=== PATIENT | female | born 1935 | race African-American/Black ===

== ENCOUNTER 2017-04-22 02:02 | Inpatient (IN) | payer OTHER ==
[~2017-04-22] VITALS: Ht 162.6 cm; Wt 68.0 kg
[2017-04-22] MEDS ORDERED: HYDR-552 PO (02:34)
[2017-04-22] MEDS ORDERED: QUET25TA PO (02:34)
[2017-04-22] MEDS ORDERED: [UNRECOGNIZED DRUG - CODE] IV (02:34)
[2017-04-22] MEDS ORDERED: HALO100A2 IM (02:34)
[2017-04-22] MEDS ORDERED: MIRT30TA7 PO (02:34)
[2017-04-22] MEDS ORDERED: ACET-2154 PO (02:34)
[2017-04-22] MEDS ORDERED: INSU100C (02:34)
[2017-04-22] MEDS ORDERED: DONE5TAB34 PO (02:34)
--- NOTE | 2017-04-22 02:34 | NUR ---
MEDICALLY CLEARED BY DR CALDWELL
[2017-04-22] MEDS ORDERED: BENA1TAB18 PO (02:37)
--- NOTE | 2017-04-22 02:44 | NUR ---
TRANSFERED TO [facility] VIA [facility]
--- NOTE | 2017-04-22 04:07 | NUR ---
received to care at 0245 from [facility] on a 72 hour hold for gravely disabled. according to the chart, she has a history of dementia and schizophrenia. she was living at home with her family but they were no longer able to care for her, due to non compliance with medications, non stop talking, and refusing care from both family, and caregivers. upon arrival on the unit, she was cooperative, but was very sleepy, and was unable to provide much information. she was assisted to bed at around 0330, and has been asleep, ever since. no distress noted. will continue to monitor closely.
[2017-04-22] MEDS ORDERED: MAGNESIUM HYDROXIDE 30 ML LIQUID UDC PO PRN (05:15)
[2017-04-22] MEDS ORDERED: ACETAMINOPHEN 325 MG TABLET PO PRN ×2 (05:15→18:30)
[2017-04-22] MEDS ORDERED: TEMAZEPAM 7.5 MG CAPSULE PO PRN (05:15)
[2017-04-22] MEDS ORDERED: MAG HYDROX/AL HYDROX/SIMETH 30 ML LIQUID UDC PO PRN (05:15)
--- NOTE | 2017-04-22 06:32 | NUR ---
AM accucheck was 84. slept 2.25 hours total. continues to sleep. no distress noted.
[2017-04-22 07:30] VITALS: BP 129/59
--- NOTE | 2017-04-22 13:47 | NUR ---
Initial DC Plan: Patient currently resides at home with her son Manuel [[phone]]. SW spoke with patient's daughter Shadia [[phone]] who stated she can take patient home when ready. JULIAN will follow up with MD, patient, and patient's family to discuss most appropriate discharge plans. SW will form a safe and proper discharge.
[2017-04-22] MEDS: LORAZEPAM 0.5 MG TABLET PO PRN (15:13)
[2017-04-22 16:00] VITALS: BP 126/64
--- NOTE | 2017-04-22 16:44 | NUR ---
DR. ALICIA BLOOM CONTACTED IN REGARDS OR MEDICATION RECONCILATION. HE REPLIED THAT HE WILL DONE IT SOON.
[2017-04-22] MEDS ORDERED: HYDROCODONE/APAP 5-325MG TABLET PO PRN (18:30)
[2017-04-22] MEDS: INSULIN LISPRO 1000 UNITS/10 ML VIAL(HUMALOG) SQ SCH (18:30)
[2017-04-22] MEDS: DIVALPROEX 125 MG TABLET.DR PO SCH (19:09)
[2017-04-22 19:43] VITALS: BP 151/72
--- NOTE | 2017-04-22 20:00 | NUR ---
PT AT THE NURSING STATION REQUESTING THAT HER DAUGHTER ETTA BE CALLED ON THE PHONE, FOR HER TO SPEAK WITH HER. ETTA'S NUMBER WAS DIALED AND PHONE GIVEN TO THE PT. SUDDENLY, PT STARTED YELLING, SCREAMING, SHATTERING THE CORDLESS PHONE ON THE FLOOR SAYING "I DON'T KNOW WHY MY FAMILY WANTS TO KILL ME, I DON'T EVEN HAVE A LIFE INSURANCE", VERY LOUD AND DISRUPTIVE TO THE UNIT,. VERY PARANOID AND DELUSIONAL. DR NAYAK WAS CALLED AND NOTIFIED, NEW ORDERS OBTAINED AND CARRIED OUT, WILL CONTINUE TO MONITOR. CLOSELY.
[2017-04-22] MEDS ORDERED: OLANZAPINE 10 MG VIAL IM ONE (20:15)
--- NOTE | 2017-04-22 20:27 | NUR ---
zyprexa 5 mg IM given to right deltoid. pt remains agitated and paranoid, cursing at her room mate. believes that people are conspiring against her, both nursing staff, and her family. states "my family is trying to kill me. i don't know why. i don't have any life insurance" firm limits set. will continue to monitor closely.
[2017-04-22] MEDS: MIRTAZAPINE 15 MG TABLET PO SCH (21:09)
[2017-04-22] MEDS: QUETIAPINE FUMARATE 25 MG TABLET PO SCH (21:09)
--- NOTE | 2017-04-22 21:09 | NUR ---
appears slightly calmer. bedtime medications were given. remains verbally hostile, and easily agitated. currently eating a snack. will continue to monitor closely.
[2017-04-22] MEDS: BLOOD SUGAR DIAGNOSTIC 1 EACH STRIP VI SCH (21:14)
--- NOTE | 2017-04-22 23:30 | NUR ---
appears calmer, but remains agitated. continues to be verbally hostile. PRN medication offered for anxiety or insomnia, but she refused. currently yelling and cursing, in her room. difficult to redirect. will continue to monitor closely.
--- NOTE | 2017-04-23 00:45 | NUR ---
remains awake, angry, and restless. PRN medication offered again, but she refused, and began cursing. firm limits set. she remains difficult to redirect. will continue to monitor closely.
--- NOTE | 2017-04-23 06:00 | NUR ---
slept several times, intermittently, during the night, 3.5 hours total. in between sleep periods, she was loud, angry, and noisy, yelling obscenities, and difficult to redirect. as of 0600, she remains asleep. no distress noted. will continue to monitor closely.
[2017-04-23] MEDS: BLOOD SUGAR DIAGNOSTIC 1 EACH STRIP VI SCH ×4 (06:33→21:00)
[2017-04-23 07:30] VITALS: BP 143/55
[2017-04-23] MEDS: INSULIN LISPRO 1000 UNITS/10 ML VIAL(HUMALOG) SQ SCH ×2 (07:30→11:30)
--- NOTE | 2017-04-23 08:12 | NUR ---
humalog insulin ac meal not adm. , patient only ate 25% of her meal share.
--- NOTE | 2017-04-23 08:12 | NUR ---
UR Note: JULIAN faxed patient's daily clinicals to counseling case manager Dior reynolds [facility] [[phone]; fax: [phone]]. Awaiting authorization number.
[2017-04-23] MEDS: QUETIAPINE FUMARATE 25 MG TABLET PO SCH ×2 (08:14→21:23)
[2017-04-23] MEDS: BENAZEPRIL HCL 20 MG TABLET PO SCH (08:14)
[2017-04-23] MEDS: DIVALPROEX 125 MG TABLET.DR PO SCH ×2 (08:14→16:52)
[2017-04-23] MEDS: HYDROCHLOROTHIAZIDE 12.5 MG CAPSULE PO SCH (08:15)
[2017-04-23] MEDS: LORAZEPAM 0.5 MG TABLET PO PRN (11:00)
[2017-04-23 11:08] LABS: BASOPHILS % (AUTO) 1.2 % (0.0-2.0); EOSINOPHILS # (AUTO) 0.3 K/uL (0.0-0.7); EOSINOPHILS % (AUTO) 8.6 % (0.0-7.0); HEMATOCRIT 41.6 % (31.2-41.9); HEMOGLOBIN 13.8 g/dL (10.9-14.3); LYMPHOCYTES # (AUTO) 1.1 K/uL (20.0-40.0); MEAN CORPUSCULAR HEMOGLOBIN 31.1 uug (24.7-32.8); MEAN CORPUSCULAR HGB CONC 33 g/dL (32.3-35.6); MEAN CORPUSCULAR VOLUME 93.6 fL (75.5-95.3); MONOCYTES # (AUTO) 0.3 K/uL (2.0-10.0); MONOCYTES % (AUTO) 11.2 % (0.0-11.0); NEUTROPHILS # (AUTO) 1.4 K/uL (1.8-8.9); PLATELET COUNT (AUTO) 187 K/uL (179-408); RED BLOOD CELL COUNT(AUTO) 4.44 MIL/uL (3.63-4.92); WHITE BLOOD COUNT (AUTO) 3.1 K/uL (3.8-11.8)
[2017-04-23 11:26] LABS: ALANINE AMINOTRANSFERASE 22 U/L (14-59); ALKALINE PHOSPHATASE 86 U/L (50-136); ASPARTATE AMINOTRANSFERASE 24 U/L (15-37); BILIRUBIN,TOTAL 0.2 mg/dL (0.2-1.0); CARBON DIOXIDE 27 mmol/L (21-32); CHLORIDE 105 mmol/L (98-107); GLUCOSE 100 mg/dL (74-106); PHOSPHOROUS 4.8 mg/dL (2.5-4.9); POTASSIUM 4.5 mmol/L (3.5-5.1); TOTAL PROTEIN, SERUM 8.7 g/dL (6.4-8.2); UREA NITROGEN, BLOOD 37 mg/dL (7-18)
[2017-04-23] MEDS ORDERED: DEXTROSE 50% 50 ML DISP.SYRIN IV PRN (15:15)
[2017-04-23] MEDS ORDERED: INSULIN REGULAR, HUMAN 300 UNIT/3 ML VIAL SQ PRN (15:15)
[2017-04-23 16:00] VITALS: BP 115/60
[2017-04-23 20:00] VITALS: BP 132/61
[2017-04-23] MEDS: MIRTAZAPINE 15 MG TABLET PO SCH (21:23)
[2017-04-24 07:30] VITALS: BP 129/73
--- NOTE | 2017-04-24 08:23 | NUR ---
UR Note: JULIAN faxed patient's daily clinicals to case packer and sealer Dior reynolds [facility] [[phone]; fax: [phone]]. Awaiting authorization number.
[2017-04-24] MEDS: BLOOD SUGAR DIAGNOSTIC 1 EACH STRIP VI SCH ×4 (08:24→20:31)
[2017-04-24] MEDS: HYDROCHLOROTHIAZIDE 12.5 MG CAPSULE PO SCH (08:26)
[2017-04-24] MEDS: BENAZEPRIL HCL 20 MG TABLET PO SCH (08:26)
[2017-04-24] MEDS: QUETIAPINE FUMARATE 25 MG TABLET PO SCH ×2 (08:26→21:00)
[2017-04-24] MEDS: DIVALPROEX 125 MG TABLET.DR PO SCH (08:28)
--- NOTE | 2017-04-24 12:14 | NUR ---
1130 patient accucheck blood sugar was 63 mg/dl- milk and lunch meal given.
[2017-04-24 15:00] VITALS: BP 113/64
[2017-04-24] MEDS ORDERED: DIVALPROEX 125 MG TABLET.DR PO SCH (17:00)
[2017-04-24] MEDS: DIVALPROEX 250 MG TABLET.DR PO SCH (17:39)
[2017-04-24] MEDS: LORAZEPAM 0.5 MG TABLET PO PRN ×2 (18:51→20:01)
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
[2017-04-24 20:19] VITALS: BP 123/74
[2017-04-24] MEDS: MIRTAZAPINE 15 MG TABLET PO SCH (21:00)
--- NOTE | 2017-04-24 22:00 | NUR ---
received to care, yelling, angry, verbally hostile, and difficult to redirect. PRN ativan was given at 2000, and, by 2099, she remained angry, and remained hostile, but easier to redirect. as of 2199, she is in activity room with peer. appears calmer, but still labile. firm limits set. currently eating a snack. appears to be in no acute distress. will continue to monitor closely.
--- NOTE | 2017-04-24 23:00 | NUR ---
currently lying in bed, talking to self, loudly. PRN offered for insomnia, but she refused. will continue to monitor closely.
--- NOTE | 2017-04-24 23:25 | NUR ---
PRN restoril given for insomnia
--- NOTE | 2017-04-25 00:20 | NUR ---
appears to be asleep. no distress noted.
--- NOTE | 2017-04-25 03:00 | NUR ---
is now awake.
[2017-04-25] MEDS: BLOOD SUGAR DIAGNOSTIC 1 EACH STRIP VI SCH ×5 (06:17→20:05)
--- NOTE | 2017-04-25 06:17 | NUR ---
remains awake. slept 4.0 hours, total. AM accucheck is 60. pt denies any sx. 4 oz. orange juice with sugar given.
--- NOTE | 2017-04-25 06:45 | NUR ---
accucheck is now 64.
[2017-04-25 07:30] VITALS: BP 130/74
[2017-04-25] MEDS: BENAZEPRIL HCL 20 MG TABLET PO SCH (09:02)
[2017-04-25] MEDS: QUETIAPINE FUMARATE 25 MG TABLET PO SCH ×2 (09:02→20:05)
[2017-04-25] MEDS: DIVALPROEX 250 MG TABLET.DR PO SCH ×2 (09:02→16:58)
[2017-04-25] MEDS: HYDROCHLOROTHIAZIDE 12.5 MG CAPSULE PO SCH (09:02)
--- NOTE | 2017-04-25 12:00 | NUR ---
GPS: Nursing Notes: FBS: Patient's FBS is 79, WNL, no action needed.
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
[2017-04-25] MEDS ORDERED: diphenhydrAMINE 50 MG/1 ML VIAL IM STA (12:46)
[2017-04-25] MEDS ORDERED: OLANZAPINE 10 MG VIAL IM STA (12:46)
[2017-04-25] MEDS ORDERED: LORAZEPAM 2 MG/1 ML VIAL IM STA (12:46)
[2017-04-25 20:00] VITALS: BP 136/66
[2017-04-25] MEDS: MIRTAZAPINE 15 MG TABLET PO SCH (20:05)
--- NOTE | 2017-04-25 20:15 | NUR ---
Pt REFUSED HS ACU-CHECK. Pt GIVEN DIABETIC EDUCATION.
[2017-04-26] MEDS: BLOOD SUGAR DIAGNOSTIC 1 EACH STRIP VI SCH (06:44)
[2017-04-26 07:30] VITALS: BP 143/79
[2017-04-26] MEDS: DIVALPROEX 250 MG TABLET.DR PO SCH ×2 (08:34→16:39)
[2017-04-26] MEDS: BENAZEPRIL HCL 20 MG TABLET PO SCH (08:34)
[2017-04-26] MEDS: QUETIAPINE FUMARATE 25 MG TABLET PO SCH ×2 (08:34→20:20)
[2017-04-26] MEDS: HYDROCHLOROTHIAZIDE 12.5 MG CAPSULE PO SCH (08:34)
[2017-04-26 15:08] VITALS: BP 96/50
--- NOTE | 2017-04-26 18:00 | NUR ---
GPS: Nursing Notes: Thought Disorder: Patient is awake and responding to her name, poor anger management, poor impulse control, disruptive by constantly shouting profanities toward staff, shouting racial statement, using the "N" toward peer and staff, impaired judgment, believes that we are against her, believes that the staff is against black people, loud and angry affect, episodes of slamming her bathroom's door, resistant with nursing care, believes that we are not feeding her, believes that we are hiding her food because she is black, guarded, paranoid behavior, unable to formulate a plan for self care, A/Ox2, continue with treatment plan.
[2017-04-26 20:00] VITALS: BP 124/60
[2017-04-26] MEDS: MIRTAZAPINE 15 MG TABLET PO SCH (20:20)
[2017-04-27 07:52] VITALS: BP 125/66
[2017-04-27] MEDS: HYDROCHLOROTHIAZIDE 12.5 MG CAPSULE PO SCH (10:11)
[2017-04-27] MEDS: DIVALPROEX 250 MG TABLET.DR PO SCH ×2 (10:11→18:00)
[2017-04-27] MEDS: QUETIAPINE FUMARATE 25 MG TABLET PO SCH ×2 (10:12→20:03)
[2017-04-27] MEDS: BENAZEPRIL HCL 20 MG TABLET PO SCH (10:12)
--- NOTE | 2017-04-27 12:22 | NUR ---
UR Note: JULIAN faxed patient's daily clinicals to outpatient case manager Dior reynolds [facility] [[phone]; fax: [phone]]. Awaiting authorization number.
[2017-04-27 17:12] VITALS: BP 116/63
[2017-04-27] MEDS: MIRTAZAPINE 15 MG TABLET PO SCH (20:03)
[2017-04-27 20:11] VITALS: BP 116/65
[2017-04-28 07:30] VITALS: BP 129/53
[2017-04-28 08:12] VITALS: BP 129/53
[2017-04-28] MEDS: BENAZEPRIL HCL 20 MG TABLET PO SCH (08:12)
[2017-04-28] MEDS: HYDROCHLOROTHIAZIDE 12.5 MG CAPSULE PO SCH (08:12)
[2017-04-28] MEDS: DIVALPROEX 250 MG TABLET.DR PO SCH (08:12)
[2017-04-28] MEDS: QUETIAPINE FUMARATE 25 MG TABLET PO SCH (08:12)
--- NOTE | 2017-04-28 11:40 | NUR ---
DC Plan: Patient will be discharged to [facility] [[address] [place] [address]; [phone]] via private transportation. JULIAN spoke with patient's daughter Shadia [[phone]] who stated she will pickling grader the patient around 12:30pm and transport patient to [facility]. Patient's daughter is aware and agreeable to discharge plans. JULIAN spoke with Andrés at [facility] to confirm patient has been accepted. Patient will follow up with Dr. Andrei Vuong (Third Loader) [ ]. SW is awaiting confirmation of psychiatry appointments from casework supervisor Rebecca at [facility] [phone]]. JULIAN will follow up with patient regarding appointments when they become available. Addendum: 04/28/17 at 1240 by JACQUELYN JORDAN Patient was provided the following mental health referrals: Dr. Ha (Psychiatrist) [[phone]; [address] [place], [place]]. Zuleyka Sharp (Nurse Practitioner) [[phone] [address] [place], [place]], Denisse Buchanan (Therapist) [[phone] [address] [place], [place]]. Patient will follow up with providers to schedule an outpatient appointment.
--- NOTE | 2017-04-28 13:51 | NUR ---
UR Note: JULIAN faxed patient's most recent clinicals to case monitor Melissa at [facility] [[phone]; fax:[phone]]. JULIAN also faxed a home health order to case monitor at [facility].
--- NOTE | 2017-04-28 15:11 | NUR ---
1345 Discharged prescriptions and instructions given to patient's daughter Anju what medications to continue at the assisted living- daughter verbalized understanding. 1400 Patient was brought to the parking are per w/c and transported to [facility] via private car , patient in stable condition, denies suicidal ideation/ denies homicidal thoughts.
== END 2017-04-28 14:00 | DRG 885 ==
LOC: ER 02:11 → GPS 02:36
PROVIDERS: ADMIT Psychiatry & Neurology Psychiatry
DX: F25.9 Schizoaffective disorder, unspecified (principal); F03.90 Unspecified dementia, unspecified severity, without behavioral disturbance, psychotic disturbance, mood disturbance, and anxiety; E11.9 Type 2 diabetes mellitus without complications; E78.5 Hyperlipidemia, unspecified; I73.9 Peripheral vascular disease, unspecified; Z79.899 Other long term (current) drug therapy; I10 Essential (primary) hypertension; F31.9 Bipolar disorder, unspecified; R91.8 Other nonspecific abnormal finding of lung field
CPT/HCPCS: 36415; 71010; 80164; 83735; 84100; 85025; 93005; 97116; 97530; A4663; J1200; J1815; J2060; J2358; J3490